=== PATIENT | female | born 1990 | race Two or more races ===

== ENCOUNTER 2023-07-12 08:36 | Outpatient (CLI) | payer OTHER | END 2023-07-12 08:38 | disposition home or self-care (01) | LOC: PRENATAL 08:36 | PROVIDERS: ATTEND Obstetrics & Gynecology Maternal & Fetal Medicine | DX: O35.3XX0 Maternal care for (suspected) damage to fetus from viral disease in mother, not applicable or unspecified (principal); O44.00 Complete placenta previa NOS or without hemorrhage, unspecified trimester; O09.529 Supervision of elderly multigravida, unspecified trimester; O34.219 Maternal care for unspecified type scar from previous cesarean delivery; Z3A.20 20 weeks gestation of pregnancy ==

== ENCOUNTER 2023-07-21 12:09 | Emergency (ER) | payer OTHER ==
[~2023-07-21] VITALS: Ht 162.6 cm; Wt 92.5 kg
[2023-07-21] MEDS ORDERED: PRENATAL MULTI1 EAC3 (12:41)
== END 2023-07-21 20:47 | disposition home or self-care (01) ==
LOC: ER 12:09
DX: O26.892 Other specified pregnancy related conditions, second trimester (principal); Z3A.21 21 weeks gestation of pregnancy; J10.1 Influenza due to other identified influenza virus with other respiratory manifestations; Z20.822 Contact with and (suspected) exposure to COVID-19

== ENCOUNTER 2023-10-04 12:18 | Outpatient (CLI) | payer OTHER ==
[~2023-10-04 12:18] MED LIST: PRENATAL MULTI1 EAC3
== END 2023-10-04 12:19 | disposition home or self-care (01) ==
LOC: PRENATAL 12:18
PROVIDERS: ATTEND Obstetrics & Gynecology Maternal & Fetal Medicine
DX: O26.849 Uterine size-date discrepancy, unspecified trimester (principal); O36.8199 Decreased fetal movements, unspecified trimester, other fetus; O09.529 Supervision of elderly multigravida, unspecified trimester; O34.219 Maternal care for unspecified type scar from previous cesarean delivery; Z3A.32 32 weeks gestation of pregnancy

== ENCOUNTER 2024-08-24 12:23 | Inpatient (IN) | payer OTHER ==
[~2024-08-24] VITALS: Ht 162.6 cm; Wt 86.2 kg
[~2024-08-24 12:23] MED LIST changes: +IBUPROFEN800 MG PO
[2024-08-24] MEDS ORDERED: PRENATAL MULTI1 EAC5 PO (13:42)
--- NOTE | 2024-08-24 13:42 | NUR ---
EMBARAZADA DE [address] FLORIAN REFIERE SANGRADO VAGINAL Y DOLOR PELVICO DESDE YAER
[2024-08-24 14:38] LABS: HEMATOCRIT 37.2 % (36.0-45.00); HEMOGLOBIN 12.5 g/dL (12.0-15.00); MEAN CELL VOLUME 86.4 fL (80.00-100.00); MEAN CORPUSCULAR HEMOGLOBIN 28.9 pg (27.00-32.0); MEAN CORPUSCULAR HGB CONC 33.5 g/dl (32.0-36.0); PLATELET COUNT 299 K/uL (150-450); RED BLOOD COUNT 4.31 M/uL (4.00-6.00); RED CELL DISTRIBUTION WIDTH 14.9 % (11.5-14.5)
--- NOTE | 2024-08-24 14:40 | NUR ---
SE ORIENTA PTE SOBRE TX A SEGUIR, LA MISMA REFIERE ENTENDER. SE TANI MUESTRA DE LAB BAJO MEDIDAS ASEPTICAS
[2024-08-24 14:54] LABS: CALCIUM 9.6 mg/dL (8.5-10.1); CREATININE SERUM 0.6 mg/dL (0.55-1.02); GFR 113.11; POTASSIUM 4.23 mEq/L (3.5-5.1)
[2024-08-24 14:56] LABS: INR < 0.93; PARTIAL THROMBOPLASTIN TIME 26.6 SECONDS (22.0-34.0); PROTHROMBIN TIME 10.1 SECONDS (9.0-11.5)
[2024-08-24 15:20] LABS: PH,URINE 5.5 (5.0-8.0); URINE APPEARANCE Clear; URINE BILIRRUBIN Negative (NEGATIVE); URINE BLOOD Large; URINE COLOR Yellow; URINE GLUCOSE Negative (NEGATIVE); URINE KETONE Negative (NEGATIVE); URINE LEUKOCYTE Negative; URINE NITRATE Negative; URINE PROTEIN 30 (NEGATIVE); URINE UROBILINOGEN 0.2 E.U./dl
[2024-08-24 15:24] LABS: URINE EPITHELIAL CELLS 4.2 uL (0.0-38.8); URINE RBC 3915.2 uL (0.0-20.8); URINE WBC 4.2 uL (0.0-23.2)
[2024-08-24] MEDS ORDERED: ACETAMINOPHEN 500 MG GEL..CAP PO ONE ×2 (16:45→17:13)
[2024-08-24] MEDS ORDERED: KETOROLAC TROMETHAMINE 30 MG VIAL IM ONE (16:45)
[2024-08-24] MEDS ORDERED: OXYTOCIN 20 UNITS/1000ML RL PIGGYBAG IV ONE (17:00)
[2024-08-24] MEDS ORDERED: RINGERS SOLUTION,LACTATED 1,000 ML IV ONE (17:00)
[2024-08-24] MEDS ORDERED: KETOROLAC TROMETHAMINE 30 MG VIAL ONE (17:13)
[2024-08-24] MEDS ORDERED: OXYTOCIN 10 UNITS/ML VIAL ONE (17:13)
[2024-08-25 08:15] VITALS: BP 133/92
[2024-08-25] MEDS ORDERED: POVIDONE-IODINE 118 ML BOTT TOP ONE (11:40)
[2024-08-25] MEDS ORDERED: OXYTOCIN 10 UNITS/ML VIAL ONE (12:24)
[2024-08-25] MEDS ORDERED: CEFAZOLIN SODIUM 1,000 MG VIAL ONE (12:25)
[2024-08-25] MEDS ORDERED: IBUprofen 800 MG TABLET PO PRN (12:45)
[2024-08-25 14:35] VITALS: O2SAT 100
[2024-08-25 14:55] VITALS: BP 103/68
[2024-08-25 15:51] VITALS: BP 119/64
[2024-08-26] VITALS: BP 103/62
[2024-08-26 01:47] LABS: HEMATOCRIT 28.9 % (36.0-45.00); HEMOGLOBIN 9.7 g/dL (12.0-15.00); MEAN CELL VOLUME 84.9 fL (80.00-100.00); MEAN CORPUSCULAR HEMOGLOBIN 28.5 pg (27.00-32.0); MEAN CORPUSCULAR HGB CONC 33.7 g/dl (32.0-36.0); PLATELET COUNT 235 K/uL (150-450); RED CELL DISTRIBUTION WIDTH 15.1 % (11.5-14.5)
[2024-08-26 08:00] VITALS: BP 121/78
== END 2024-08-26 09:43 | disposition home or self-care (01) | DRG 779 ==
LOC: ER 12:26 → OB/GYN 17:12
PROVIDERS: General Practice; ADMIT Specialist; ATTEND Specialist
PROC: 3E033VJ Introduction of Other Hormone into Peripheral Vein, Percutaneous Approach (ICD-10-PCS; 2024-08-24)
PROC: 10D17Z9 Manual Extraction of Products of Conception, Retained, Via Natural or Artificial Opening (ICD-10-PCS; principal; 2024-08-25 10:30)
DX: O03.4 Incomplete spontaneous abortion without complication (principal)